=== PATIENT | female | born 1975 | race Caucasian/White ===

== ENCOUNTER 2020-02-17 15:36 | Emergency (ER) | payer BC, OTHER ==
[2020-02-17 16:17] VITALS: BMI 25.9
--- NOTE | 2020-02-17 16:57 | PDOC ---
History of Present Illness - General Chief Complaint: Palpitations Stated Complaint: WEAKNESS, BP PROBLEMS, PALPITATIONS History Source: Patient Exam Limitations: No Limitations - History of Present Illness Initial Comments: 02/17/20 16:47 HISTORY OF PRESENT ILLNESS: 44-year-old female denies medical history presents emergency department for evaluation of intermittent dizziness and palpitations over the past 2 weeks. Patient had an acute episode today approximately 2 hours prior to arrival which triggered her evaluation in the emergency department. She denies fevers, chills, cough, shortness of breath, nausea, vomiting, diarrhea or easy bleeding. No recent travel or sick contacts. PAST MEDICAL HISTORY: Denies past medical history SURGICAL HISTORY: Denies ALLERGIES: Latex, aloe vera REVIEW OF SYSTEMS General/Constitutional: Denies fever or chills. Denies weakness, weight change. HEENT: Denies change in vision. Denies ear pain or discharge. Denies sore throat. Cardiovascular: See HPI Respiratory: Denies cough, wheezing, or hemoptysis. Gastrointestinal: Denies nausea, vomiting, diarrhea or constipation. Denies rectal bleeding. Genitourinary: Denies dysuria, frequency, or change in urination. Musculoskeletal: Denies joint or muscle swelling or pain. Denies neck or back pain. Skin and breasts: Denies rash or easy bruising. Neurologic: Denies headache, vertigo, loss of consciousness, or loss of sensation. Psychiatric: Denies depression or anxiety. Endocrine: Denies increased thirst. Denies abnormal weight change. Hematologic/Lymphatic: Denies anemia, easy bleeding, or history of blood clots. Allergic/Immunologic: Denies hives or skin allergy. Denies latex allergy. PHYSICAL EXAM General Appearance: Well-appearing, appropriately dressed. No apparent distress, no intoxication. Neck: Supple. Trachea midline. No tenderness, rigidity, carotid bruit, stridor, lymphadenopathy, or thyromegaly. Respiratory/Chest: Lungs CTAB. No shortness of breath, chest tenderness, respiratory distress, accessory muscle use. No crackles, rales, rhonchi, stridor, wheezing, dullness. Chest tender to the left pectoral muscle. No masses present. Cardiovascular: RRR. S1, S2. No JVD, murmur, bradycardia, tachycardia. Vascular Pulses: Dorsalis-Pedis (R): 2+, Dorsalis-Pedis (L): 2+ Gastrointestinal/Abdominal: Normal bowel sounds. Abdomen soft, non-distended. No tenderness or rebound tenderness. No organomegaly, pulsatile mass, guarding, hernia, hepatomegaly, splenomegaly. Musculoskeletal/Extremities: Normal inspection. FROM of all extremities, normal capillary refill. Pelvis Stable. No CVA tenderness. No tenderness to extremities, pedal edema, swelling, erythema or deformity. Past History - Medical History Allergies/Adverse Reactions: Allergies Allergy/AdvReac Type Severity Reaction Status Date / Time aloe vera Allergy Verified 02/17/20 15:44 COPD: No - Reproductive History Is Patient Now?: No - Psycho-Social/Smoking History Smoking History: Former smoker Have you smoked in the past 12 months: No If you are a former smoker, when did you quit?: 12/30/2019 Information on smoking cessation initiated: Yes - Substance Abuse Hx (Audit-C & DAST Scrn) How often the patient has a drink containing alcohol: Never Score: In Men: 4 or > Positive; In Women: 3 or > Positive: 0 Screen Result (Pos requires Nsg. Audit-10AR): Negative In the last yr the pt used illegal drug/Rx for NonMed reason: No Score: Yes response is considered Positive: 0 Screen Result (Positive result requires Nsg. DAST-10): Negative *Physical Exam - Vital Signs Last Vital Signs Temp Pulse Resp BP Pulse Ox 98.3 F 79 19 113/80 98 02/17/20 15:40 02/17/20 15:40 02/17/20 15:40 02/17/20 15:40 02/17/20 15:40 Heart Score/ECG Review - History History: Slightly suspicious - Electrocardiogram EKG: Normal - Age Age: </= 45 - Risk Factors Risk Factors Heart Score: No Hx Hypercholesterolemia, No Hx Hypertension, No Hx Diabetes, No Smoking History, No Positive family hx of cardiac disease, No Hx Obesity Based on the list above the patient has:: No risk factors known - Troponin Troponin: </= normal limit - Score Heart Score - Total: 0 ED Treatment Course - LABORATORY CBC & Chemistry Diagram: 02/17/20 17:35 02/17/20 17:35 - ADDITIONAL ORDERS Additional order review: Laboratory Results 02/17/20 02/17/20 02/17/20 18:30 17:35 17:35 PT with INR 12.00 INR 1.02 PTT (Actin FS) 31.6 Sodium 138 Potassium 4.2 Chloride 104 Carbon Dioxide 30 Anion Gap 5 L BUN 18.5 H Creatinine 0.8 Est GFR (CKD-EPI)AfAm 103.92 Est GFR (CKD-EPI)NonAf 89.66 Random Glucose 92 Calcium 8.9 Magnesium 2.1 Total Bilirubin 0.4 AST 14 L ALT 21 Alkaline Phosphatase 68 Creatine Kinase 83 Troponin I < 0.02 Total Protein 7.0 Albumin 3.7 TSH 1.00 Urine Color Yellow Urine Appearance Clear Urine pH 6.5 Ur Specific [place] 1.008 L Urine Protein Negative Urine Glucose (UA) Negative Urine Ketones Trace H Urine Blood Negative Urine Nitrite Negative Urine Bilirubin Negative Urine Urobilinogen 1.0 Ur Leukocyte Esterase 2+ H Urine WBC (Auto) 71 Urine RBC (Auto) 6 Urine Casts (Auto) 0 U Epithel Cells (Auto) 21 Urine Bacteria (Auto) 263 Urine HCG, Qual Negative 02/17/20 17:35 RBC 4.12 MCV 97.1 H MCHC 35.0 RDW 12.4 MPV 7.5 Neutrophils % 75.3 Lymphocytes % 17.4 Monocytes % 5.9 Eosinophils % 0.7 Basophils % 0.7 - RADIOLOGY Radiology Studies Ordered: Category Date Time Status CHEST PA & LAT [RAD] Stat Radiology 02/17/20 16:58 Taken Medical Decision Making - Medical Decision Making 02/17/20 16:57 A/P: 44-year-old female with intermittent dizziness, palpitations and chest pain for 2 weeks Physical exam is unremarkable Cardiac work-up TSH Reassess 02/17/20 19:55 Laboratory Tests 02/17/20 02/17/20 02/17/20 17:35 17:35 17:35 WBC 10.2 H RBC 4.12 Hgb 14.0 Hct 40.0 MCV 97.1 H MCH 34.0 H MCHC 35.0 RDW 12.4 Plt Count 376 MPV 7.5 Absolute Neuts (auto) 7.7 Neutrophils % 75.3 Lymphocytes % 17.4 Monocytes % 5.9 Eosinophils % 0.7 Basophils % 0.7 Nucleated RBC % 0 PT with INR 12.00 INR 1.02 PTT (Actin FS) 31.6 Sodium 138 Potassium 4.2 Chloride 104 Carbon Dioxide 30 Anion Gap 5 L BUN 18.5 H Creatinine 0.8 Est GFR (CKD-EPI)AfAm 103.92 Est GFR (CKD-EPI)NonAf 89.66 Random Glucose 92 Calcium 8.9 Magnesium 2.1 Total Bilirubin 0.4 AST 14 L ALT 21 Alkaline Phosphatase 68 Creatine Kinase 83 Troponin I < 0.02 Total Protein 7.0 Albumin 3.7 TSH 1.00 Urine Color Urine Appearance Urine pH Ur Specific [place] Urine Protein Urine Glucose (UA) Urine Ketones Urine Blood Urine Nitrite Urine Bilirubin Urine Urobilinogen Ur Leukocyte Esterase Urine WBC (Auto) Urine RBC (Auto) Urine Casts (Auto) U Epithel Cells (Auto) Urine Bacteria (Auto) Urine HCG, Qual 02/17/20 18:30 WBC RBC Hgb Hct MCV MCH MCHC RDW Plt Count MPV Absolute Neuts (auto) Neutrophils % Lymphocytes % Monocytes % Eosinophils % Basophils % Nucleated RBC % PT with INR INR PTT (Actin FS) Sodium Potassium Chloride Carbon Dioxide Anion Gap BUN Creatinine Est GFR (CKD-EPI)AfAm Est GFR (CKD-EPI)NonAf Random Glucose Calcium Magnesium Total Bilirubin AST ALT Alkaline Phosphatase Creatine Kinase Troponin I Total Protein Albumin TSH Urine Color Yellow Urine Appearance Clear Urine pH 6.5 Ur Specific [place] 1.008 L Urine Protein Negative Urine Glucose (UA) Negative Urine Ketones Trace H Urine Blood Negative Urine Nitrite Negative Urine Bilirubin Negative Urine Urobilinogen 1.0 Ur Leukocyte Esterase 2+ H Urine WBC (Auto) 71 Urine RBC (Auto) 6 Urine Casts (Auto) 0 U Epithel Cells (Auto) 21 Urine Bacteria (Auto) 263 Urine HCG, Qual Negative EKG sinus rhythm with rate of 72. Normal intervals present. No ischemic changes present. Chest x-ray as read by me: Angle sharp. Cardiac silhouette is within normal limits. Lung [place] clear without focal infiltrate or consolidation noted. As patient has normal EKG, chest x-ray and laboratory testing I feel it is safe to discharge home to follow-up with primary doctor. We will give patient referral for cardiology for continued evaluation. I discussed the physical exam findings, ancillary test results and final diagnoses with the patient. I answered all of the patient's questions. The patient was satisfied with the care received and felt comfortable with the discharge plan and treatment plan. The patient will call their primary care physician within 24 hours to arrange follow-up and will return to the Emergency Department with any new, persistent or worsening symptoms. Portions of this note have been documented using voice recognition software. As a result, errors may occur in the behavioral science chair process. Effort has been made to correct all grammatical and behavioral science chair error, but some may have been missed which may produce sporadic inaccurate behavioral science chair or nonsensical phrases. 02/17/20 20:03 Discharge - Discharge Information Problems reviewed: Yes Clinical Impression/Diagnosis: Palpitations with regular cardiac rhythm Condition: Stable Disposition: HOME - Admission No - Follow up/Referral Referrals: Alex Villalpando MD [Staff Physician] - - Patient Discharge Instructions Additional Instructions: Your testing today was unremarkable. There are no acute findings on your EKG, chest x-ray or laboratory testing. 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 Call to schedule follow-up for continued evaluation of your palpitations. Return to the emergency part for any new or worsening symptoms. Thank you very much for choosing us to provide your emergent healthcare needs. - Post Discharge Activity
[2020-02-17 17:52] LABS: BASO % 0.7 % (0-2.0); EOS % 0.7 % (0-4.5); LYMPH % 17.4 % (8-40); MEAN CELL VOLUME 97.1 fl (80-96); MEAN PLT VOLUME 7.5 fl (7.5-11.1); MONO % 5.9 % (3.8-10.2); NEUT % 75.3 % (42.8-82.8); PLATELET COUNT 376 K/MM3 (134-434); RBC 4.12 M/mm3 (3.60-5.2); RDW 12.4 % (11.6-15.6); WHITE BLOOD COUNT 10.2 K/mm3 (4.0-10.0)
[2020-02-17 18:00] LABS: INR 1.02 (0.83-1.09)
[2020-02-17 18:02] LABS: ACTIVATED PTT 31.6 SECONDS (25.2-36.5)
[2020-02-17 18:16] LABS: ALBUMIN 3.7 g/dl (3.4-5.0); ALK PHOS 68 U/L (45-117); ANION GAP 5 MMOL/L (8-16); BILIRUBIN,TOTAL 0.4 mg/dL (0.2-1); BLOOD UREA NITROGEN 18.5 mg/dL (7-18); CALCIUM 8.9 mg/dL (8.5-10.1); CHLORIDE 104 mmol/L (98-107); CO2 30 mmol/L (21-32); CREATININE 0.8 mg/dL (0.55-1.3); GLUCOSE,RANDOM 92 mg/dL (74-106); MAGNESIUM 2.1 mg/dL (1.8-2.4); POTASSIUM 4.2 mmol/L (3.5-5.1); SGOT/AST 14 U/L (15-37); SGPT/ALT 21 U/L (13-61); SODIUM 138 mmol/L (136-145)
[2020-02-17 18:56] LABS: EPI CELLS 21 /uL (0-25.1); HYALINE CASTS 0 /uL (0-3.1); PH,URINE 6.5 (5.0-8.0); URINE APPEARANCE CLEAR; URINE BACTERIA 263 /uL (0-1359); URINE BILIRUBIN NEGATIVE (NEGATIVE); URINE COLOR YELLOW; URINE GLUCOSE (UA) NEGATIVE (NEGATIVE); URINE KETONE TRACE (NEGATIVE); URINE LEUK ESTERASE 2+ (NEGATIVE); URINE NITRITE NEGATIVE (NEGATIVE); URINE PROTEIN NEGATIVE (NEGATIVE); URINE RBC 6 /uL (0-23.9); URINE WBC 71 /uL (0-25.8)
[2020-02-17 18:58] LABS: HCG,QUALITATIVE URINE Negative
[2020-02-17 20:23] VITALS: BP 108/78; PULSE 70; TEMP 98
--- NOTE | 2020-02-20 11:38 | EKG ---
Test Reason : Blood Pressure : / mmHG Vent. Rate : 064 BPM Atrial Rate : 064 BPM P-R Int : 138 ms QRS Dur : 078 ms QT Int : 398 ms P-R-T Axes : 063 090 046 degrees QTc Int : 410 ms NORMAL SINUS RHYTHM POSSIBLE LEFT ATRIAL ENLARGEMENT BORDERLINE ECG WHEN COMPARED WITH ECG OF 17-FEB-2020 16:00, NO SIGNIFICANT CHANGE WAS FOUND Confirmed by JOSUÉ TOLENTINO MD ([id number]) on 02/20/2020 11:38:28 AM Referred By: Confirmed By:JOSUÉ TOLENTINO MD
--- NOTE | 2020-02-20 11:39 | EKG ---
Test Reason : Blood Pressure : / mmHG Vent. Rate : 072 BPM Atrial Rate : 072 BPM P-R Int : 136 ms QRS Dur : 074 ms QT Int : 382 ms P-R-T Axes : 070 095 047 degrees QTc Int : 418 ms NORMAL SINUS RHYTHM BORDERLINE ECG NO PREVIOUS ECGS AVAILABLE Confirmed by JOSUÉ TOLENTINO MD ([id number]) on 02/20/2020 11:38:52 AM Referred By: Confirmed By:JOSUÉ TOLENTINO MD
== END 2020-02-17 20:23 | disposition home or self-care (01) ==
LOC: JER 15:36
DX: R00.2 Palpitations (principal)
CPT/HCPCS: 36415; 71046-TC-FY; 80053; 81003; 82550; 83735; 84443; 84484; 84703; 85025; 85610; 85730; 93005; 93010; 99285-25